=== PATIENT | male | born 1955 | race Two or more races ===

== ENCOUNTER 2017-02-01 12:07 | Emergency (ER) | payer OTHER ==
[~2017-02-01] VITALS: Ht 175.3 cm; Wt 90.7 kg
--- NOTE | 2017-02-01 12:19 | NUR ---
PT BIBA FOR ANXIETY, FOUND ON THE STREETS PARANOID, WALKING ON HIS UNDERWEAR. VSS. NOTED CRYING OUT LOUD. SAFETY AND COMFORT MEASURES PROVIDED. WILL MONITOR.
--- NOTE | 2017-02-01 12:24 | NUR ---
PAINT LINE OPERATOR AT FOR BLOOD DRAW.
[2017-02-01 12:29] LABS: BASOPHILS # (AUTO) 0.2 /CMM (0.0-0.2); EOSINOPHILS % (AUTO) 0.4 % (0.0-6.0); HEMATOCRIT 40 % (39-51); HEMOGLOBIN 12.9 g/dL (13.5-17.5); LYMPHOCYTES # (AUTO) 1.3 /CMM (0.8-4.8); LYMPHOCYTES % (AUTO) 12.4 % (20.0-44.0); MEAN CORPUSCULAR HEMOGLOBIN 29 PG (26.0-33.0); MEAN CORPUSCULAR HGB CONC 32 g/dl (31.0-36.0); MEAN CORPUSCULAR VOLUME 89 fL (80-96); MONOCYTES # (AUTO) 0.5 /CMM (0.1-1.30); MONOCYTES % (AUTO) 4.6 % (2.0-12.0); NEUTROPHILS # (AUTO) 8.4 /CMM (1.8-8.9); NEUTROPHILS % (AUTO) 80.6 % (43.0-81.0); PLATELET COUNT (AUTO) 309 /CMM (150-450); RDW COEFFICIENT OF VARIATION 13.9 (11.5-15.0); RED BLOOD CELL COUNT(AUTO) 4.47 MIL/uL (4.5-6.0); WHITE BLOOD COUNT (AUTO) 10.4 K/uL (4.3-11.0)
[2017-02-01 12:39] LABS: CALCIUM, SERUM 8.8 mg/dL (8.5-10.1); CARBON DIOXIDE 22 mmol/L (21-32); CHLORIDE 103 mmol/L (98-107); CREATININE 1.6 mg/dL (0.6-1.3); GLUCOSE 175 mg/dL (74-106); POTASSIUM 4.5 mmol/L (3.5-5.1); SODIUM SERUM 138 mmol/L (136-145); UREA NITROGEN, BLOOD 29 mg/dL (7-18)
[2017-02-01 12:44] LABS: ALANINE AMINOTRANSFERASE 110 U/L (12-78); ALBUMIN 4.3 g/dL (3.4-5.0); ALCOHOL, BLOOD < 3 mg/dL (0-0); ALKALINE PHOSPHATASE 93 U/L (46-116); ASPARTATE AMINOTRANSFERASE 79 U/L (15-37); BILIRUBIN,DIRECT 0.3 mg/dL (0.0-0.2); BILIRUBIN,TOTAL 0.9 mg/dL (0.2-1.0); SALICYLATE 0.4 mg/dL (2.8-20.0)
[2017-02-01 12:45] LABS: ACETAMINOPHEN 0 ug/ml (10-30)
[2017-02-01] MEDS ORDERED: IV NS 0.9% 1,000 ML BAG IV ONE (13:00)
--- NOTE | 2017-02-01 13:15 | NUR ---
LADAN RN EPIC APPLICATION COORDINATOR AT . PT'S AT FOR INFO.
--- NOTE | 2017-02-01 13:20 | NUR ---
IV ACCESS STARTED. PT MEDICATED ORDERED.
--- NOTE | 2017-02-01 13:29 | NUR ---
PT TAKEN TO CT.
[2017-02-01] MEDS ORDERED: GLIP10TA11 PO (13:34)
[2017-02-01] MEDS ORDERED: LOVA20TA2 PO (13:34)
[2017-02-01] MEDS ORDERED: RANI150T8 PO (13:34)
[2017-02-01] MEDS ORDERED: SITA1TAB6 PO (13:34)
[2017-02-01] MEDS ORDERED: CYCL5TAB PO (13:34)
[2017-02-01] MEDS ORDERED: LISI40TA4 PO (13:34)
[2017-02-01] MEDS ORDERED: HYDR-552 PO (13:34)
[2017-02-01] MEDS ORDERED: AMLO10TA2 PO (13:34)
[2017-02-01] MEDS ORDERED: TRAM50TA2 PO (13:34)
[2017-02-01] MEDS ORDERED: ALFU10TA10 PO (13:34)
[2017-02-01] MEDS ORDERED: FINA5TAB11 PO (13:34)
[2017-02-01] MEDS ORDERED: TIZA4TAB4 PO (13:34)
[2017-02-01] MEDS ORDERED: MELO-270 PO (13:34)
[2017-02-01] MEDS ORDERED: GABA-534 PO (13:35)
[2017-02-01 14:18] LABS: APPEARANCE,URINE Slightly Cloudy (CLEAR); BILIRUBIN,URINE SMALL (NEGATIVE); BLOOD, URINE Negative Ery/uL (NEGATIVE); COLOR,URINE Dark Yellow (YELLOW); KETONES,URINE 15 (NEGATIVE); LEUKOCYTE ESTERASE ,URINE Negative (NEGATIVE); NITRITE, URINE Negative (NEGATIVE); PROTEIN,URINE 100 mg/dl (NEGATIVE); UGLUCOSE Negative (NEGATIVE); UROBILINOGEN,URINE 0.2 EU/dL (0.2)
[2017-02-01 14:25] LABS: BACTERIA,URINE None seen /HPF (None Seen); MUCUS,URINE Few /LPF (None Seen); SQUAMOUS EPITHELIAL CELL,UR Few /HPF (None Seen); URINE AMORPHOUS URATE Few /HPF (None Seen)
[2017-02-01 14:26] LABS: HYALINE CASTS, URINE Few /LPF (None Seen)
[2017-02-01] MEDS ORDERED: OLANZAPINE 5 MG TABLET PO ONE (15:00)
[2017-02-01] MEDS ORDERED: OLANZAPINE 5 MG TABLET ONE (15:06)
[2017-02-01 16:25] VITALS: BP 132/88
--- NOTE | 2017-02-01 16:31 | NUR ---
[facility] ETA [id number]
--- NOTE | 2017-02-01 18:07 | NUR ---
REPORT GIVEN TO [facility]-
--- NOTE | 2017-02-01 18:08 | NUR ---
IV removed. Catheter intact and site benign. Pressure and 4x4 applied to site. No bleeding noted.
--- NOTE | 2017-02-01 18:08 | NUR ---
REPORT GIVEN TO [facility] FOR TRANSFER TO [place].
== END 2017-02-01 18:09 ==
LOC: ER 12:09
DX: F29 Unspecified psychosis not due to a substance or known physiological condition (principal); R74.0 Nonspecific elevation of levels of transaminase and lactic acid dehydrogenase [LDH]; F15.10 Other stimulant abuse, uncomplicated; N28.9 Disorder of kidney and ureter, unspecified; E11.65 Type 2 diabetes mellitus with hyperglycemia; M54.9 Dorsalgia, unspecified; G89.29 Other chronic pain; F60.0 Paranoid personality disorder; R51 Headache
CPT/HCPCS: 36415; 70450-TC; 80048-TC; 80076-TC; 80305; 81000-TC; 85025-TC; A4606; G0480; J7030; Z7610